=== PATIENT | male | born 1945 | race Caucasian/White ===

== ENCOUNTER 2017-12-14 00:11 | Inpatient (IN) ==
[2017-12-14] MEDS ORDERED: ONDANSETRON 4 MG/2 ML VIAL IV STA (00:30)
[2017-12-14] MEDS ORDERED: MEROPENEM 1,000 MG in SODIUM CHLORIDE 0.9% 100 ML IV STA (00:30)
[2017-12-14] MEDS ORDERED: ALBUTEROL 2.5 MG/3 ML NEB RESP TX SCH (00:30)
[2017-12-14] MEDS ORDERED: methylPREDNISolone SOD SUC 125 MG/2 ML VIAL IV STA (00:30)
[2017-12-14 01:05] LABS: Basophils % 0.2 % (0.0-0.8); Hematocrit 48.5 VOL% (42.0-52.0); Immature Granulocytes % 0.6 %; Immature Granulocytes Absolute 0.03 #; Lymphocytes % 0.6 % (21.2-54.2); Mean Corpuscular Hemoglobin 29 PG (27-34); Mean Platelet Volume 9.4 FL (9.6-12.0); Monocytes # 0.3 10*3/uL (0.11-0.8); Monocytes % 5.7 % (1.7-12.7); Neutrophils # 5.1 10*3/uL (1.4-7.4); Neutrophils % 92.9 % (38.7-73.9); Platelet Count 136 T/CUMM (130-400); Red Blood Count 5.51 MC/CUMM (3.8-5.5); Red Cell Distribution Width 14.2 % (9.3-17.3); White Blood Count 5.5 T/CUMM (4-12)
[2017-12-14] MEDS ORDERED: ONDANSETRON 4 MG/2 ML VIAL ONE (01:08)
[2017-12-14] MEDS ORDERED: methylPREDNISolone SOD SUC 125 MG/2 ML VIAL ONE (01:08)
[2017-12-14] MEDS ORDERED: MEROPENEM 1,000 MG VIAL IV ONE (01:08)
[2017-12-14] MEDS ORDERED: SODIUM CHLORIDE 0.9% 100 ML IV ONE (01:09)
[2017-12-14 01:13] LABS: PT Patient Result 11.2 SECS
[2017-12-14 01:14] LABS: INR 1.1; Partial Thromboplastin Time 29.9 SECS (0-40)
[2017-12-14 01:25] LABS: Band Neutrophils 4 % (0-10); Platelet Estimate Normal; Segmented Neutrophils 94 % (50-85); Total Cells Counted 100
[2017-12-14 01:53] LABS: Alanine Aminotransferase 74 U/L (16-61); Albumin 2.5 G/DL (3.4-5.0); Alkaline Phosphatase 226 U/L (45-117); Aspartate Amino Transferase 39 U/L (0-37); Blood Urea Nitrogen 16 MG/DL (7-18); Calcium 8.5 MG/DL (8.5-10.1); Glucose 153 MG/DL (74-106); Osmolality,Calculated 256.4 MOS/KG (273-304); Potassium 4.1 MMOL/L (3.5-5.1); Sodium 126 MMOL/L (136-145); Total Protein 6.7 G/DL (6.4-8.3); Troponin I Only < 0.015 NG/ML (0.00-0.045)
[2017-12-14 02:55] LABS: Apearance,Urine CLEAR (Clear); Bacteria,Urine Occasional /HPF (Few); Bilirubin,Urine Negative (Negative); Blood, Urine Negative (Negative); Glucose,Urine (UA) 50 mg/dL (Negative); Ketones,Urine Negative (Negative); Mucus,Urine Occasional /LPF (Occasional); Nitrite,Urine Negative (Negative); Protein,Urine 30 MG/DL; RBC,Urine 4 /HPF (0-4); Urine Color Yellow (Yellow); Urine Specific Gravity 1.023 (1.001-1.035); Urine Urobilinogen < 2.0 EU/DL (0.2-1.0); WBC,Urine 1 /HPF (0-6)
[2017-12-14] MEDS ORDERED: MORPHINE 2 MG/1 ML SYRINGE IV PRN (03:11)
[2017-12-14] MEDS ORDERED: ONDANSETRON 4 MG/2 ML VIAL IV PRN (03:11)
[2017-12-14] MEDS ORDERED: ACETAMINOPHEN 325 MG TABLET PEG PRN (03:11)
[2017-12-14] MEDS ORDERED: ALBUTEROL 1.25 MG/3 ML NEB RESP TX PRN (03:22)
[2017-12-14] MEDS: SODIUM CHLORIDE 0.9% 1,000 ML IV SCH ×2 (04:30→17:01)
[2017-12-14] MEDS: LEVOFLOXACIN INJ 750 MG in PREMIX 1 EACH IV SCH (04:30)
[2017-12-14 06:10] LABS: Lactic Acid 2.3 MMOL/L (0.4-2.0)
[2017-12-14 06:41] LABS: Hepatitis A Ab IgM Quant 0.07 Index; Hepatitis A Ab IgM Result Negative (Negative); Hepatitis B Core IgM Result Negative (Negative); Hepatitis B Surface Ag Quant < 0.10 Index; Hepatitis B Surface Ag Result Negative (Negative); Hepatitis C Virus Ab Quant 0.06 Index; Hepatitis C Virus Ab Result Negative (Negative)
[2017-12-14] MEDS: ALBUTEROL/IPRATROPIUM 3 ML NEB RESP TX SCH ×3 (07:26→20:03)
[2017-12-14] MEDS: PIPERACILLIN/TAZOBACTAM 3,375 MG in SODIUM CHLORIDE 0.9% 100 ML IV SCH ×2 (07:37→16:05)
[2017-12-14] MEDS ORDERED: DEXTROSE 50% 25 GM/50 ML VIAL IV PRN (08:20)
[2017-12-14] MEDS ORDERED: GLUCAGON 1 MG VIAL IM PRN (08:20)
[2017-12-14] MEDS: clonazePAM 0.5 MG TABLET PER TUBE SCH ×3 (09:13→21:22)
[2017-12-14] MEDS: ENOXAPARIN 40 MG/0.4 ML SYRINGE SUBCUT SCH (09:13)
[2017-12-14] MEDS: predniSONE 10 MG TABLET PER TUBE SCH (09:13)
[2017-12-14] MEDS: METOCLOPRAMIDE 10 MG TABLET PER TUBE SCH ×3 (09:14→21:22)
[2017-12-14] MEDS: MIDODRINE 5 MG TABLET PER TUBE SCH ×2 (09:14→21:22)
[2017-12-14] MEDS: PANTOPRAZOLE 40 MG TABLET PO SCH ×2 (09:14→21:22)
[2017-12-14] MEDS: MONTELUKAST 10 MG TABLET PO SCH (09:14)
[2017-12-14] MEDS ORDERED: MORPHINE 4 MG/1 ML VIAL IV PRN (11:27)
[2017-12-14] MEDS: INSULIN REGULAR 100 UNIT/ML SUBCUT SCH ×2 (15:35→18:37)
[2017-12-15] MEDS: INSULIN REGULAR 100 UNIT/ML SUBCUT SCH ×5 (00:44→23:16)
[2017-12-15] MEDS: PIPERACILLIN/TAZOBACTAM 3,375 MG in SODIUM CHLORIDE 0.9% 100 ML IV SCH ×4 (00:45→23:03)
[2017-12-15] MEDS: ALBUTEROL/IPRATROPIUM 3 ML NEB RESP TX SCH ×4 (02:06→19:17)
[2017-12-15 03:55] LABS: Basophils % 0.1 % (0.0-0.8); Hemoglobin 11.4 GM/DL (14.0-18.0); Immature Granulocytes % 0.8 %; Immature Granulocytes Absolute 0.08 #; Lymphocytes # 0.1 10*3/uL (1.4-4.0); Lymphocytes % 0.6 % (21.2-54.2); Mean Corpuscular HGB Conc 33.5 GM/DL (32-36); Mean Corpuscular Hemoglobin 30 PG (27-34); Mean Platelet Volume 9.5 FL (9.6-12.0); Monocytes # 0.7 10*3/uL (0.11-0.8); Neutrophils # 9.6 10*3/uL (1.4-7.4); Neutrophils % 91.5 % (38.7-73.9); Platelet Count 199 T/CUMM (130-400); Red Blood Count 3.82 MC/CUMM (3.8-5.5); Red Cell Distribution Width 14.5 % (9.3-17.3); White Blood Count 10.5 T/CUMM (4-12)
[2017-12-15 04:19] LABS: Albumin 2.3 G/DL (3.4-5.0); Bilirubin,Total 0.6 MG/DL (0.2-1.0); Calcium 7.8 MG/DL (8.5-10.1); Potassium 4.4 MMOL/L (3.5-5.1); Total Protein 5.6 G/DL (6.4-8.3)
[2017-12-15 04:20] LABS: Calcium 7.9 MG/DL (8.5-10.1); Potassium 4.4 MMOL/L (3.5-5.1); Prealbumin 13.1 MG/DL (20-40)
[2017-12-15] MEDS: LEVOFLOXACIN INJ 750 MG in PREMIX 1 EACH IV SCH (05:06)
[2017-12-15 06:36] LABS: Band Neutrophils 4 % (0-10); Metamyelocytes 1 %; Myelocytes 1 %; Segmented Neutrophils 93 % (50-85)
[2017-12-15 06:37] LABS: Platelet Estimate Normal; Total Cells Counted 100
[2017-12-15] MEDS: SODIUM CHLORIDE 0.9% 1,000 ML IV SCH ×3 (07:00→19:34)
[2017-12-15] MEDS: MONTELUKAST 10 MG TABLET PO SCH (08:45)
[2017-12-15] MEDS: MIDODRINE 5 MG TABLET PER TUBE SCH ×2 (08:46→20:12)
[2017-12-15] MEDS: clonazePAM 0.5 MG TABLET PER TUBE SCH ×3 (08:46→20:12)
[2017-12-15] MEDS: METOCLOPRAMIDE 10 MG TABLET PER TUBE SCH ×3 (08:46→20:12)
[2017-12-15] MEDS: PANTOPRAZOLE 40 MG TABLET PO SCH ×2 (08:47→20:12)
[2017-12-15] MEDS: ENOXAPARIN 40 MG/0.4 ML SYRINGE SUBCUT SCH (08:47)
[2017-12-15] MEDS: predniSONE 10 MG TABLET PER TUBE SCH (08:47)
[2017-12-15] MEDS ORDERED: ZALEPLON 5 MG CAPSULE PO PRN (22:41)
[2017-12-16] MEDS: ALBUTEROL/IPRATROPIUM 3 ML NEB RESP TX SCH ×3 (00:32→13:38)
[2017-12-16] MEDS: LEVOFLOXACIN INJ 750 MG in PREMIX 1 EACH IV SCH (03:36)
[2017-12-16] MEDS: INSULIN REGULAR 100 UNIT/ML SUBCUT SCH ×2 (05:55→12:50)
[2017-12-16 06:43] LABS: Basophils % 0.1 % (0.0-0.8); Eosinophils % 0.1 % (0.00-10.9); Hematocrit 41.8 VOL% (42.0-52.0); Hemoglobin 12.7 GM/DL (14.0-18.0); Immature Granulocytes % 1.1 %; Immature Granulocytes Absolute 0.12 #; Lymphocytes # 0.1 10*3/uL (1.4-4.0); Lymphocytes % 0.5 % (21.2-54.2); Mean Corpuscular HGB Conc 30.4 GM/DL (32-36); Mean Corpuscular Hemoglobin 29 PG (27-34); Mean Corpuscular Volume 94.6 FL (87-102); Mean Platelet Volume 9.6 FL (9.6-12.0); Monocytes # 0.6 10*3/uL (0.11-0.8); Monocytes % 5.6 % (1.7-12.7); Neutrophils # 10.1 10*3/uL (1.4-7.4); Neutrophils % 92.6 % (38.7-73.9); Platelet Count 223 T/CUMM (130-400); Red Blood Count 4.42 MC/CUMM (3.8-5.5); Red Cell Distribution Width 14.6 % (9.3-17.3); White Blood Count 10.9 T/CUMM (4-12)
[2017-12-16 07:24] LABS: Albumin 2.4 G/DL (3.4-5.0); Bilirubin,Direct 0.34 MG/DL (0.0-0.20); Bilirubin,Indirect 0.9 MG/DL (0.0-1.0); Bilirubin,Total 1.2 MG/DL (0.2-1.0); Calcium 8.1 MG/DL (8.5-10.1); Osmolality,Calculated 277.8 MOS/KG (273-304); Potassium 5.2 MMOL/L (3.5-5.1); Total Protein 5.9 G/DL (6.4-8.3)
[2017-12-16 07:30] LABS: Band Neutrophils 1 % (0-10); Eosinophils 1 % (0-10); Hypochromasia Slight; Lymphocytes 3 % (20-55); Platelet Estimate Adequate; Segmented Neutrophils 90 % (50-85); Total Cells Counted 100
[2017-12-16 07:47] LABS: ABG Base Excess -2.2 MMOL/L (-2.5-2.5); ABG HCO3 22.6 MMOL/L (20-26); ABG Oxygen Saturation 96.8 % (95-100); ABG TCO2 34.3 MMOL/L (23-27)
[2017-12-16] MEDS ORDERED: FUROSEMIDE 40 MG/4 ML VIAL IV ONE (07:50)
[2017-12-16 07:56] LABS: ABG PH 7.009 (7.35-7.45)
[2017-12-16] MEDS: clonazePAM 0.5 MG TABLET PER TUBE SCH ×2 (09:00→15:09)
[2017-12-16] MEDS: MIDODRINE 5 MG TABLET PER TUBE SCH (09:15)
[2017-12-16] MEDS: PIPERACILLIN/TAZOBACTAM 3,375 MG in SODIUM CHLORIDE 0.9% 100 ML IV SCH ×2 (09:15→15:09)
[2017-12-16] MEDS: MONTELUKAST 10 MG TABLET PO SCH (09:15)
[2017-12-16] MEDS: predniSONE 10 MG TABLET PER TUBE SCH (09:15)
[2017-12-16] MEDS: ENOXAPARIN 40 MG/0.4 ML SYRINGE SUBCUT SCH (09:15)
[2017-12-16] MEDS: METOCLOPRAMIDE 10 MG TABLET PER TUBE SCH ×2 (09:15→15:09)
[2017-12-16] MEDS: PANTOPRAZOLE 40 MG TABLET PO SCH (09:15)
[2017-12-16] MEDS ORDERED: LORazepam 2 MG/1 ML VIAL IV PRN (09:34)
[2017-12-16] MEDS ORDERED: MORPHINE 4 MG/1 ML VIAL IV PRN (09:48)
[2017-12-16 17:12] VITALS: BP 40/29
== END 2017-12-16 16:13 | disposition expired | DRG 871 ==
LOC: N.ED 00:11 → SUPCPDRO 03:03 → SUATTDRO 03:03 → N.EDINP 03:03 → N.TELES 03:23 → N.CC 03:35
PROVIDERS: ADMIT Internal Medicine